=== PATIENT | female | born 1940 | race Caucasian/White ===

== ENCOUNTER → 2017-06-25 | Outpatient (CLI) | payer MEDICARE, OTHER ==
[~2017-06-25] MED LIST: ALBU90OI61 INH; CALCIUM 600+D31 EACH PO; DIGO.125 PO; EZET10 PO; FLAX PO; Flonase 0.05% N16 GM; HYDCHL50 PO; LOPE2C PO; MOVE FREE ULTR1 EACH PO; MULVITMIND PO; Metamucil0.52 GM PO; Metrocream45 GM TOP; POTASSIUM99 M1 PO; Pataday2.5 ML; TRAM50 PO; VITAMIN D-32000 UNI1 PO
== END | disposition home or self-care (01) ==
LOC: PLD 08:10 → LAB SHORT 08:10
DX: D22.4 Melanocytic nevi of scalp and neck (principal); D04.61 Carcinoma in situ of skin of right upper limb, including shoulder
CPT/HCPCS: 88305

== ENCOUNTER → 2017-11-13 | Outpatient (CLI) | payer MEDICARE, OTHER | END | disposition home or self-care (01) | LOC: LAB SHORT 16:49 → LAB 16:49 | DX: N39.0 Urinary tract infection, site not specified (principal) | CPT/HCPCS: 87086 ==

== ENCOUNTER → 2018-11-30 | Outpatient (CLI) | payer MEDICARE, OTHER ==
[2018-11-30 10:53] LABS: BASOPHILS ABSOLUTE AUTO 0.08 K/mm3 (0.00-0.23); BASOPHILS PERCENT AUTO 1 % (0-2); EOSINOPHILS ABSOLUTE AUTO 0.29 K/mm3 (0.00-0.68); EOSINOPHILS PERCENT AUTO 3 % (0-6); Hematocrit 46.6 % (33.0-51.0); Hemoglobin 16.2 g/dL (11.5-16.0); IMMATURE GRAN ABSOLUTE AUTO 0.04 K/mm3 (0.00-0.10); IMMATURE GRAN PERCENT AUTO 0 % (0-1); LYMPHOCYTES ABSOLUTE AUTO 1.54 K/mm3 (0.84-5.20); LYMPHOCYTES PERCENT AUTO 16 % (21-46); MONOCYTES ABSOLUTE AUTO 0.87 K/mm3 (0.16-1.47); MONOCYTES PERCENT AUTO 9 % (4-13); Mean Corpuscular HGB 30.3 pg (26.0-34.0); Mean Corpuscular HGB Conc 34.8 g/dL (31.5-36.5); Mean Corpuscular Volume 87 fL (80-100); Mean Platelet Volume 9.9 fL (9.1-12.4); NEUTROPHILS ABSOLUTE AUTO 6.86 K/mm3 (1.96-9.15); NEUTROPHILS PERCENT AUTO 71 % (41-73); Platelet Count 236 K/mm3 (150-400); RDW Coefficient Variation 12.1 % (11.7-14.2); RDW Standard Deviation 38.5 fL (35.1-46.3); Red Blood Cell Count 5.34 M/mm3 (3.80-5.20); White Blood Cell Count 9.68 K/mm3 (4.00-11.30)
[2018-11-30 11:01] LABS: Albumin, Blood 3.6 g/dL (3.4-5.0); Bilirubin, Total 0.6 mg/dL (0.1-1.0); Bun/Creatinine Ratio 28.7 (12.0-20.0); Calcium, Blood 9.7 mg/dL (8.5-10.1); Creatinine, Blood 1.08 mg/dL (0.40-1.00); Globulin, Blood 3.6 g/dL (2.2-4.0); Potassium, Blood 3.8 mmol/L (3.5-5.5); Total Protein, Blood 7.2 g/dL (6.4-8.2)
== END ==
LOC: LAB SHORT 10:44 → LAB EV 10:44
PROVIDERS: Emergency Medicine
DX: R05 Cough (principal); R09.02 Hypoxemia
CPT/HCPCS: 80053; 85025; 87040

== ENCOUNTER → 2018-12-15 | Outpatient (CLI) | payer MEDICARE, OTHER | END | disposition home or self-care (01) | LOC: LAB EV 15:12 → LAB SHORT 15:12 | DX: N39.0 Urinary tract infection, site not specified (principal); N18.9 Chronic kidney disease, unspecified | CPT/HCPCS: 87077; 87086; 87186 ==

== ENCOUNTER → 2018-12-30 | Outpatient (CLI) | payer MEDICARE, OTHER | END | disposition home or self-care (01) | LOC: LAB EV 14:46 → LAB SHORT 14:46 | DX: N39.0 Urinary tract infection, site not specified (principal) | CPT/HCPCS: 87077; 87086; 87186 ==

== ENCOUNTER → 2019-01-15 | Outpatient (CLI) | payer MEDICARE, OTHER | END | disposition home or self-care (01) | LOC: LAB 09:00 → LAB SHORT 09:00 | DX: N39.0 Urinary tract infection, site not specified (principal) | CPT/HCPCS: 87086 ==

== ENCOUNTER → 2019-07-29 | Outpatient (CLI) | payer MEDICARE, OTHER | END | disposition home or self-care (01) | LOC: PLD 11:38 → LAB SHORT 11:38 | DX: C44.629 Squamous cell carcinoma of skin of left upper limb, including shoulder (principal) | CPT/HCPCS: 88305 ==

== ENCOUNTER → 2019-11-14 | Outpatient (CLI) | payer MEDICARE, OTHER ==
[~2019-11-14] MED LIST changes: -DIGO.125 PO; +LANOXIN125 MCG PO; +NITR100CA PO; +VIBERZI100 MG PO
[2019-11-14 10:18] LABS: Source, Urine Clean Catch
[2019-11-14 11:46] LABS: Appearance, Urine Bloody (Clear); Bilirubin, Urine Neg (Neg); Blood, Urine 4+ (Neg); Color, Urine Red (P-Yellow); Glucose Qualitative, Urine Neg (Neg); Ketones, Urine Neg (Neg); Leukocyte Esterase, Urine 2+ (Neg); Nitrite, Urine Neg (Neg); Protein, Urine 4+ (Neg); Specific Gravity, Urine 1.015 (1.003-1.022); Urobilinogen, Urine NORM (Normal); pH, Urine 6.5 (5.0-8.0)
[2019-11-14 11:52] LABS: Bacteria Rare /hpf; Red Blood Cells, Urine TNTC /hpf (0-2); Squamous Epithelial Cells Few /hpf (Few); White Blood Cells, Urine TNTC /hpf (0-5)
== END | disposition home or self-care (01) ==
LOC: PLD 10:12 → LAB SHORT 10:12
PROVIDERS: Family Medicine
DX: N39.0 Urinary tract infection, site not specified (principal)
CPT/HCPCS: 81001; 87086

== ENCOUNTER → 2020-02-08 | Outpatient (CLI) | payer MEDICARE, OTHER | END | disposition home or self-care (01) | LOC: PLD 08:17 → LAB SHORT 08:17 | DX: B35.1 Tinea unguium (principal) | CPT/HCPCS: 88305; 88312 ==

== ENCOUNTER → 2020-08-17 | Outpatient (CLI) | payer MEDICARE, OTHER | LOC: LAB SHORT 14:01 → LAB 14:01 | DX: R31.9 Hematuria, unspecified (principal) | CPT/HCPCS: 87086 ==

== ENCOUNTER → 2020-12-26 | Outpatient (CLI) | payer MEDICARE, OTHER | LOC: LAB 14:16 → LAB SHORT 14:16 | DX: D48.5 Neoplasm of uncertain behavior of skin (principal) | CPT/HCPCS: 88305 ==

== ENCOUNTER 2024-01-03 06:13 | Day surgery (SDC) | payer MEDICARE ==
[~2024-01-03] VITALS: Ht 152.4 cm; Wt 57.0 kg
[2024-01-03] MEDS ORDERED: CeFAZolin Sodium 2,000 MG VIAL ONE (06:22)
[2024-01-03] MEDS ORDERED: NS 50 ML IV ONE (06:23)
[2024-01-03] MEDS ORDERED: Lidocaine HCl/Pf 1% 5 ML VIAL ONE (07:00)
[2024-01-03] MEDS ORDERED: EZETIMIBE10 M6 PO (07:07)
[2024-01-03] MEDS ORDERED: Potassium Chlo20 ME1 PO (07:07)
[2024-01-03] MEDS ORDERED: HYDCHL50 PO (07:08)
[2024-01-03] MEDS ORDERED: PROLIA60 MG/1 ML SC (07:09)
[2024-01-03] MEDS ORDERED: INCRUSE ELLIPTA 62.5 INH (07:10)
[2024-01-03] MEDS ORDERED: Lactated Ringer's 1,000 ML IV ONE (07:15)
[2024-01-03] MEDS ORDERED: Ipratropium/Albuterol SulF 2.5-0.5MG/3 ML Amp ONE (07:22)
[2024-01-03] MEDS ORDERED: propofoL 20 ML IV ONE ×2 (07:23→07:37)
[2024-01-03] MEDS ORDERED: FentaNYL Citrate 50 MCG/ML 2 ML Injection ONE (07:24)
--- NOTE | 2024-01-03 07:40 | NUR ---
01/03/24 0740 Soraya Dalton PT STATES DID NOT GET EKG BECAUSE "NO ONE TOLD ME TO." PER ANESTHESIA, 12 ORDERED IN PRE-OP. ANESTHESIA ALSO ORDERED NEBULIZER TX PRE-OP AFTER EKG, ORDERED AT 0721. TRANSFER TO OR DELAYED D/T NEW ORDERS FROM ANESTHESIA, DR. BURKETT.
[2024-01-03] MEDS ORDERED: Bupivacaine 0.5% HCl 5 MG/ML 30MLVIAL INJ ONE (07:58)
[2024-01-03] MEDS ORDERED: Dexamethasone Sod Phos 10 MG/ML 1ML VIAL ONE (08:11)
[2024-01-03] MEDS ORDERED: Ondansetron HCl 2 MG / ML 2ML Vial ONE (09:04)
[2024-01-03] MEDS ORDERED: Ibuprofen 600 MG Tab ONE (10:10)
[2024-01-03 11:01] VITALS: BP 128/71
--- NOTE | 2024-01-03 11:05 | NUR ---
01/03/24 1105 Soraya Dalton LATE ENTRY: PT VSS ON RA. PT DENIED PAIN. IBUPROPHEN GIVEN PER MD ORDERS IN RECOVERY UNIT. PT TOLERATED EATING AND DRINKING WITH NO ISSUES. R LEG ELEVEATED AND ICE PLACED UNDER KNEE. AMAYA, SPOUSE, BROUGHT TO RECOVERY UNIT AND DISCHARGE INSTUCTIONS GIVEN WITH PT AND SPOUSE. QUESTIONS ENCOURGAGED. PT UP TO TOILET WITH WC AND SBA, NO ISSUES. PT EXPRESSED READINESS TO GO HOME. PT STATED MD SAID THAT SHE WOULD NOT NEED CRUTCHES OR A WALKER. PT TOLD MD SHE HAS A CANE AVALIABLE IF NEEDED, AND MD APPROVED PLAN VERBALLY IN PRE-OP ROOM, PER PT.
== END 2024-01-03 10:40 | disposition home or self-care (01) ==
LOC: ORSCSDS 06:13
PROVIDERS: Podiatrist
PROC: 0QBQ0ZZ Excision of Right Toe Phalanx, Open Approach (ICD-10-PCS; principal; 2024-01-03 07:30)
DX: M20.11 Hallux valgus (acquired), right foot (principal); M89.9 Disorder of bone, unspecified; L84 Corns and callosities; J44.9 Chronic obstructive pulmonary disease, unspecified; Z79.899 Other long term (current) drug therapy
CPT/HCPCS: 82947; 93005; 93010; A9270; C1713; J0690; J1100; J2003; J2405; J2704; J3010

== ENCOUNTER 2025-01-20 08:48 | Day surgery (SDC) | payer MEDICARE ==
[~2025-01-20] VITALS: Ht 152.4 cm; Wt 55.2 kg
[2025-01-20] VITALS (18 sets, daily range): BP systolic 96–142; BP diastolic 53–98
[~2025-01-20 08:48] MED LIST changes: +ALBU90OI INH; +AZELASTINE137 MCG/01; +AZO D-MANNOSE500 M1 PO; +Acetaminophen650 M1 PO; +CALCIUM 250 MG1 EACH PO; +CeFAZolin Sodium 2,000 MG in NS 100 ML IV SCH; +Chlorhexidine Mouth Care 15 ML UDC MT SCH; +EYE ALLERGY ITCH5 ML PO; +EZETIMIBE10 M6 PO; +Estrace Vagin42.5 GM VAG; +FLUOROURACIL30 G2; +FentaNYL Citrate 50 MCG/ML 2 ML Injection ONE; +HYDROCORTISONE30 GM TOP; +Hydrochlorothia50 MG PO; +INCRUSE ELLIPTA INH; +MERIBIN5 MG PO; +MOVE FREE ULTRA PO; +MULTI-VITAMIN1 EAC2 PO; -Metrocream45 GM TOP; +Midazolam HCl 1MG / ML 2ML Vial ONE; +NORITATE TOP; +POTA10T PO; +PROLIA60 MG/1 ML SC; +Ropivacaine 0.5% HCl/Pf 123.125 MG,EPINEPHrine HCL 0.25 MG,Ketorolac Tromethamine 15 MG... INFIL SCH; +Tranexamic Acid 100 ML IV SCH; +Triamcinolone A15 G3 TOP; -VIBERZI100 MG PO; +VIBERZI75 MG PO; +Vitamin K100 MCG PO
[2025-01-20] MEDS ORDERED: CeFAZolin Sodium 2,000 MG VIAL ONE (09:06)
[2025-01-20] MEDS ORDERED: HYDROmorphone HCl/Pf 1MG SYR IV PRN ×2 (09:10→10:10)
[2025-01-20] MEDS ORDERED: FentaNYL Citrate 50 MCG/ML 2 ML Injection IV PRN ×2 (09:15)
[2025-01-20] MEDS ORDERED: Ondansetron HCl 2 MG / ML 2ML Vial IV PRN ×2 (09:15→10:15)
[2025-01-20] MEDS ORDERED: DIGOX125 MC1 PO (09:17)
[2025-01-20] MEDS ORDERED: Metoclopramide HCl 5MG / ML 2ML Vial IV PRN (10:05)
[2025-01-20] MEDS ORDERED: Magnesium Hydroxide Conc 10 ML UDC PO PRN (10:05)
--- NOTE | 2025-01-20 10:08 | NUR ---
History, Chart, Medications and Allergies reviewed before start of procedure. Patient confirms NPO status and agrees with scheduled surgery. Pre-Op teaching done. Pt verbalizes understanding. Patient reports completing Chlorhexadine shower X2 prior to admission to hospital. Lungs clear T/O to Auscultation.
[2025-01-20] MEDS ORDERED: FLU VACC TS2025(65UP)/MF59C/PF 45 MCG/0.5 ML SYRINGE IM SCH (10:30)
[2025-01-20] MEDS ORDERED: Albuterol HFA200 ACT/6.7 GM INH INH PRN (10:35)
[2025-01-20] MEDS ORDERED: Dexamethasone Sod Phos 10 MG/ML 1ML VIAL ONE (10:40)
[2025-01-20] MEDS ORDERED: Ondansetron HCl 2 MG / ML 2ML Vial ONE (10:40)
[2025-01-20] MEDS ORDERED: FentaNYL Citrate 50 MCG/ML 2 ML Injection ONE (11:00)
[2025-01-20] MEDS ORDERED: Glycopyrrolate 0.2 MG/ML 5ML VIAL ONE (11:13)
[2025-01-20] MEDS ORDERED: Insulin Regular 100 UNIT/ML 10ML Vial SC SCH (11:30)
[2025-01-20] MEDS ORDERED: Tiotropium Bromide 2.5 MCG/ACT MIST INHAL (10 ACT/4 GM) INH SCH (13:40)
--- NOTE | 2025-01-20 14:37 | NUR ---
ARRIVAL TO SURG FLOOR TO FLOOR VIA GURNEY. A&O 4, VSS. STATES NO PAIN AT THIS TIME. L KNEE w/TELFA, TEGADERM & ARTURO WRAP. POLAR PACK IN PLACE. AWAITING POST OP VOID. SNACKS & DRINKS GIVEN. CURRENTLY RESTING IN BED w/CALL LIGHT WITHIN REACH.
--- NOTE | 2025-01-20 17:59 | NUR ---
SHIFT SUMMARY S/P L TKA. A&O x4, VSS. TOLERATING FOOD & FLUIDS WELL. WORKED w/THERAPY - AMBULATED IN HALLWAY. PER THERAPY - PT WOULD BENEFIT FROM THERAPY SESSION AGAIN IN THE AM. STATES NO PAIN AT THIS TIME. VOIDED SUCCESSFULLY. CURRENTLY RESTING IN BED w/CALL LIGHT WITHIN REACH.
[2025-01-20] MEDS ORDERED: Ketorolac Tromethamine 15mg Vial IV SCH (18:00)
[2025-01-20] MEDS ORDERED: CeFAZolin Sodium 2,000 MG in NS 100 ML IV SCH (18:40)
[2025-01-21 04:03] VITALS: BP 100/59
[2025-01-21 04:22] LABS: BASOPHILS ABSOLUTE AUTO 0.05 K/mm3 (0.00-0.23); BASOPHILS PERCENT AUTO 1 % (0-2); EOSINOPHILS ABSOLUTE AUTO 0.01 K/mm3 (0.00-0.68); EOSINOPHILS PERCENT AUTO 0 % (0-6); Hematocrit 36.9 % (33.0-51.0); Hemoglobin 12.4 g/dL (11.5-16.0); IMMATURE GRAN ABSOLUTE AUTO 0.03 K/mm3 (0.00-0.10); IMMATURE GRAN PERCENT AUTO 0 % (0-1); LYMPHOCYTES ABSOLUTE AUTO 0.81 K/mm3 (0.84-5.20); LYMPHOCYTES PERCENT AUTO 8 % (21-46); MONOCYTES ABSOLUTE AUTO 0.78 K/mm3 (0.16-1.47); MONOCYTES PERCENT AUTO 7 % (4-13); Mean Corpuscular HGB Conc 33.6 g/dL (31.5-36.5); Mean Corpuscular Volume 91 fL (80-100); NEUTROPHILS ABSOLUTE AUTO 9.05 K/mm3 (1.96-9.15); NEUTROPHILS PERCENT AUTO 84 % (41-73); NRBC ABSOLUTE 0.00 K/mm3 (0.00-0.02); NRBC Auto 0.0 /100 WBC (0.0-0.2); Platelet Count 164 K/mm3 (150-400); RDW Coefficient Variation 11.9 % (11.7-14.2); RDW Standard Deviation 39.8 fL (35.1-46.3)
[2025-01-21 04:46] LABS: Anion Gap 9.0 mmol/L (3-11); Blood Urea Nitrogen 30.0 mg/dL (8-24); CO2, Blood 28.0 mmol/L (21-32); Calcium, Blood 7.4 mg/dL (8.5-10.1); Chloride, Blood 104.0 mmol/L (98-108); Creatinine, Blood 1.32 mg/dL (0.40-1.00); Glucose, Blood 126.0 mg/dL (70-99); Magnesium, Blood 1.9 mg/dL (1.6-2.4); Potassium, Blood 3.5 mmol/L (3.5-5.5); Sodium, Blood 137.0 mmol/L (136-145)
--- NOTE | 2025-01-21 05:15 | NUR ---
NOC SUMMARY- PT PAIN MANAGED WELL. PT HAS BEEN RESTING COMFORTABLY. PT IS VOIDING AND AMBULATING c FWW/ GB. POLAR PACK ON. PT TOLERATING PO. DRESSING IS C/D/I. NO NEW ISSUES. CALL LIGHT IN REACH.
[2025-01-21 07:09] VITALS: BP 100/67
[2025-01-21] MEDS ORDERED: OXAYDO5 M1 PO (08:41)
[2025-01-21] MEDS ORDERED: XARELTO20 MG PO (08:42)
[2025-01-21] MEDS ORDERED: SULTRIDS PO (08:42)
[2025-01-21] MEDS ORDERED: ONDA4ODT MM (08:43)
[2025-01-21] MEDS ORDERED: FLUOROURACIL TOP SCH (09:00)
[2025-01-21] MEDS ORDERED: Multivitamins 1 Tab PO SCH (09:00)
[2025-01-21] MEDS ORDERED: Potassium Chloride 10 Meq Tablet SA PO SCH (09:00)
[2025-01-21] MEDS ORDERED: Trimethoprim/Sulfamethoxazole DS Tab PO SCH (09:00)
--- NOTE | 2025-01-21 09:48 | NUR ---
SUMMARY ASSUMED CARE OF PT @0700. VSS. AXO4. TELFA/TEGADERM CDI. PAIN MINIMAL - TYLENOL PER EMAR PER PT REQUEST. TOLERATED PO INTAKE WELL. PHYSAICAL THERAPY WORKED WITH PT - DEEMED OK TO DC. HAS VOIDED. HAS AMBULATED WELL. DR BOOKER ASSESSED PT - DEEMED OK TO DC. DC INSTRUCTIONS PRINTED OUT. PT EDUCATED REGARDING DC. EXTRA AQUACEL PROVIDED FOR PRN USE IF NEEDED AT HOME. AWAITING RIDE HOME NOW. IV PULLED
--- NOTE | 2025-01-21 10:46 | NUR ---
PT DC'D@1453. ALL BELONGINGS WITH POT. PT WHEELED OUT WITH FAMILY MEMBERS TO PERSONAL VEHICLE. NO CHANGES FROM SUMMARY NOTE.
== END 2025-01-21 10:45 | disposition home or self-care (01) ==
LOC: ORSCMMR 08:48 → ORD 10:45 → ORSCMMR 10:45 → SURS 13:56 → ORSCMMR 01-21 10:45
PROVIDERS: Orthopaedic Surgery
PROC: 0SRD0J9 Replacement of Left Knee Joint with Synthetic Substitute, Cemented, Open Approach (ICD-10-PCS; principal; 2025-01-20 10:45)
DX: M17.12 Unilateral primary osteoarthritis, left knee (principal); E11.9 Type 2 diabetes mellitus without complications; I10 Essential (primary) hypertension; Z79.899 Other long term (current) drug therapy; Z87.891 Personal history of nicotine dependence
CPT/HCPCS: 36415; 73560-LT; 80048; 82947; 83735; 85025; 97110; 97116; 97161; 97530; A9270; C1713; C1776; J0166; J0690; J0735; J1100; J1885; J2250; J2405; J2704; J2795; J3010; J3373; J7050; J7120

== ENCOUNTER 2025-01-25 21:57 | Inpatient (IN) | payer MEDICARE ==
[~2025-01-25] VITALS: Ht 152.4 cm; Wt 56.6 kg
[~2025-01-25 21:57] MED LIST changes: -CeFAZolin Sodium 2,000 MG in NS 100 ML IV SCH; -Chlorhexidine Mouth Care 15 ML UDC MT SCH; +DIGOX125 MC1 PO; -FentaNYL Citrate 50 MCG/ML 2 ML Injection ONE; -Midazolam HCl 1MG / ML 2ML Vial ONE; +ONDA4ODT MM; +OXAYDO5 M1 PO; -Ropivacaine 0.5% HCl/Pf 123.125 MG,EPINEPHrine HCL 0.25 MG,Ketorolac Tromethamine 15 MG... INFIL SCH; +SULTRIDS PO; -Tranexamic Acid 100 ML IV SCH; +XARELTO20 MG PO
[2025-01-25 22:39] LABS: BASOPHILS ABSOLUTE AUTO 0.04 K/mm3 (0.00-0.23); BASOPHILS PERCENT AUTO 0 % (0-2); EOSINOPHILS ABSOLUTE AUTO 0.06 K/mm3 (0.00-0.68); EOSINOPHILS PERCENT AUTO 1 % (0-6); Hematocrit 38.7 % (33.0-51.0); Hemoglobin 13.2 g/dL (11.5-16.0); IMMATURE GRAN ABSOLUTE AUTO 0.03 K/mm3 (0.00-0.10); IMMATURE GRAN PERCENT AUTO 0 % (0-1); LYMPHOCYTES ABSOLUTE AUTO 1.25 K/mm3 (0.84-5.20); LYMPHOCYTES PERCENT AUTO 11 % (21-46); MONOCYTES ABSOLUTE AUTO 0.70 K/mm3 (0.16-1.47); MONOCYTES PERCENT AUTO 6 % (4-13); Mean Corpuscular HGB Conc 34.1 g/dL (31.5-36.5); Mean Corpuscular Volume 90 fL (80-100); NEUTROPHILS ABSOLUTE AUTO 9.36 K/mm3 (1.96-9.15); NEUTROPHILS PERCENT AUTO 82 % (41-73); NRBC ABSOLUTE 0.00 K/mm3 (0.00-0.02); NRBC Auto 0.0 /100 WBC (0.0-0.2); Platelet Count 229 K/mm3 (150-400); RDW Coefficient Variation 12.5 % (11.7-14.2); RDW Standard Deviation 41.1 fL (35.1-46.3)
[2025-01-25 22:55] LABS: Alanine Aminotransfer (ALT/SGP 22.0 U/L (12-78); Albumin, Blood 3.0 g/dL (3.4-5.0); Albumin/Globulin Ratio 0.8 (0.8-1.8); Anion Gap 10.0 mmol/L (3-11); Aspartate Aminotrans (AST/SGOT 23.0 U/L (12-37); Bilirubin, Total 0.6 mg/dL (0.1-1.0); Blood Urea Nitrogen 32.0 mg/dL (8-24); CO2, Blood 26.0 mmol/L (21-32); Calcium, Blood 9.2 mg/dL (8.5-10.1); Chloride, Blood 99.0 mmol/L (98-108); Creatinine, Blood 1.41 mg/dL (0.40-1.00); Globulin, Blood 3.8 g/dL (2.2-4.0); Glucose, Blood 135.0 mg/dL (70-99); Potassium, Blood 4.4 mmol/L (3.5-5.5); Sodium, Blood 131.0 mmol/L (136-145); Total Protein, Blood 6.8 g/dL (6.4-8.2)
[2025-01-26] MEDS ORDERED: Metoclopramide HCl 5MG / ML 2ML Vial IV ONE (00:35)
[2025-01-26] MEDS ORDERED: Pantoprazole Sodium 40 MG Injection IV ONE (00:35)
[2025-01-26] MEDS ORDERED: NS 1,000 ML IV SCH (00:35)
[2025-01-26] MEDS ORDERED: Lidocaine 2% Viscous Soln 100 ML BTL EXT ONE (00:40)
[2025-01-26] MEDS ORDERED: Lidocaine 2% Viscous Soln 15 ML UDC XX ONE (00:40)
[2025-01-26] MEDS ORDERED: CefTRIAXone Sodium 1,000 MG in NS 100 ML IV ONE ×2 (03:50→09:05)
[2025-01-26] MEDS ORDERED: FLU VACC TS2025(65UP)/MF59C/PF 45 MCG/0.5 ML SYRINGE IM SCH (05:10)
[2025-01-26] MEDS ORDERED: Pantoprazole Sodium 40 MG Injection IV SCH (06:00)
[2025-01-26 07:17] VITALS: BP 126/59
[2025-01-26] MEDS ORDERED: NS 250 ML IV PRN (08:40)
[2025-01-26] MEDS ORDERED: Lactobacil 2-S.Thermo-Bifido 1 1 Cap PO SCH (09:00)
[2025-01-26 13:41] LABS: Source, Urine Voided
[2025-01-26 13:44] LABS: Bilirubin, Urine Neg (Neg); Color, Urine Yellow (P-Yellow); Glucose Qualitative, Urine Neg (Neg); Ketones, Urine Neg (Neg); Leukocyte Esterase, Urine 3+ (Neg); Protein, Urine 1+ (Neg); Specific Gravity, Urine 1.020 (1.003-1.022); Urobilinogen, Urine NORM (Normal)
[2025-01-26 13:58] LABS: Red Blood Cells, Urine 25-50 /hpf (0-2)
[2025-01-26 15:14] VITALS: BP 127/63
[2025-01-26] MEDS ORDERED: Enoxaparin 30 MG/0.3 ML SYR SC SCH (16:00)
[2025-01-26] MEDS ORDERED: Ondansetron HCl 2 MG / ML 2ML Vial IV PRN (16:05)
--- NOTE | 2025-01-26 16:31 | NUR ---
SHIFT SUMMARY PT ADMITTED TO UNIT AT SHIFT CHANGE. PT ABLE TO STAND, AND AMBULATE INDEPENDENTLY c FWW TO BATHROOM TO URINATE. PT TOLERATED AMBULATION WELL. PT A/Ox4, ABLE TO MAKE NEEDS KNOWN, AND ORIENTED TO LIMITATIONS. PT ORIENTED TO ROOM AND CALL SYSTEM. ADMISSION COMPLETED INCLUDING MED REC. PT DENIES PAIN. TREATED FOR NAUSEA x1. DRESSING TO LEFT KNEE C/D/I, PHYSICAL THERAPY TO START TOMORROW. PT HAS APPOINTMENT SCHEDULED WITH [facility] FOR POST OP FOLLOW UP NEXT WEEK AND STATES DRESSING TO REMAIN IN PLACE UNTIL THEN. REMAINS ON CLEAR LIQUID DIET FOR GI REST. IV ABX ADMINISTERED PER ORDERS. PT TOLERATING INTAKE WELL. UA COLLECTED DUE TO JUD COLORED URINE WITH SEDIMENT AND HX OF UTI c ESBL, CONTACT PRECAUTIONS INITIATED DUE TO HX. URINE AND BLOOD CULTURES PENDING. PT WAS ON BACTRIM PRIOR TO ADMISSION/BLOOD CULTURE DRAWS. CURRENTLY RECIEVING LR @ 75 ML/HR IN PIV IN RAC. PT CURRENTLY RESTING IN BED WITH BED IN LOWEST POSITION AND CALL LIGHT IN REACH. PT HAS BEEN CALLING APPROPRIATELY.
--- NOTE | 2025-01-26 18:25 | NUR ---
PALLIATIVE CARE CONSULT: CONSULT RECEIVED FOR GI, POLST. REQUESTED FROM PRIMARY RN TO DISCUSS CODE STATUS AND COMPLETE POLST SINCE PT VERBALLY TOLD HER SHE WANTS TO BE A DNR. MET WITH PT AND EDUCATED ON POLST AND CODE STATUS. PT WISHES TO BE DNR, SELECTIVE TREATMENT. PRIMARY RN ALREADY OBTAINED ORDER FOR DNR. COMPLETED POLST WITH PT. NEEDS MD SIGNATURE. WILL OBTAIN TOMORROW.
[2025-01-26 19:17] VITALS: BP 119/61
[2025-01-26] MEDS ORDERED: Metoclopramide HCl 5MG / ML 2ML Vial IV PRN (20:20)
[2025-01-27 03:25] VITALS: BP 134/69
--- NOTE | 2025-01-27 04:59 | NUR ---
SHIFT SUMMARY A&OX4. ABLE TO MAKE NEEDS KNOWN. HAS HAD INTERMITTENT NAUSEA AND MEDICATED PER EMAR. REGLAN HAS WORKED THE BEST FOR MANAGEMENT OF HER NAUSEA. TYLENOL WORKED WELL FOR HER HEADACHE. SHE REQUESTED TO GO FOR A WALK DURING THE NIGHT TO STRETCH HER LEGS AND AMBULATED APPROX. 100' AND BACK W/FWW AND SBA. O2 SATS REMAINED IN LOW TO MID 90'S WITH AMBULATION ON RA. PT DENIED ANY SOB. CURRENTLY PT IS SLEEPING IN BED AT LOWEST POSITION WITH CALL LIGHT WITHIN REACH.
[2025-01-27 05:23] LABS: BASOPHILS ABSOLUTE AUTO 0.07 K/mm3 (0.00-0.23); BASOPHILS PERCENT AUTO 1 % (0-2); EOSINOPHILS ABSOLUTE AUTO 0.25 K/mm3 (0.00-0.68); EOSINOPHILS PERCENT AUTO 4 % (0-6); Hematocrit 33.2 % (33.0-51.0); Hemoglobin 11.2 g/dL (11.5-16.0); IMMATURE GRAN ABSOLUTE AUTO 0.03 K/mm3 (0.00-0.10); IMMATURE GRAN PERCENT AUTO 0 % (0-1); LYMPHOCYTES ABSOLUTE AUTO 1.57 K/mm3 (0.84-5.20); LYMPHOCYTES PERCENT AUTO 23 % (21-46); MONOCYTES ABSOLUTE AUTO 0.62 K/mm3 (0.16-1.47); MONOCYTES PERCENT AUTO 9 % (4-13); Mean Corpuscular HGB Conc 33.7 g/dL (31.5-36.5); Mean Corpuscular Volume 91 fL (80-100); NEUTROPHILS ABSOLUTE AUTO 4.17 K/mm3 (1.96-9.15); NEUTROPHILS PERCENT AUTO 62 % (41-73); NRBC ABSOLUTE 0.00 K/mm3 (0.00-0.02); NRBC Auto 0.0 /100 WBC (0.0-0.2); Platelet Count 165 K/mm3 (150-400); RDW Coefficient Variation 12.3 % (11.7-14.2); RDW Standard Deviation 41.0 fL (35.1-46.3)
[2025-01-27 05:50] LABS: Alanine Aminotransfer (ALT/SGP 23.0 U/L (12-78); Albumin, Blood 2.6 g/dL (3.4-5.0); Albumin/Globulin Ratio 0.9 (0.8-1.8); Anion Gap 6.0 mmol/L (3-11); Aspartate Aminotrans (AST/SGOT 21.0 U/L (12-37); Bilirubin, Total 0.5 mg/dL (0.1-1.0); Blood Urea Nitrogen 18.0 mg/dL (8-24); CO2, Blood 28.0 mmol/L (21-32); Calcium, Blood 7.9 mg/dL (8.5-10.1); Chloride, Blood 102.0 mmol/L (98-108); Creatinine, Blood 1.0 mg/dL (0.40-1.00); Globulin, Blood 2.8 g/dL (2.2-4.0); Glucose, Blood 98.0 mg/dL (70-99); Potassium, Blood 3.8 mmol/L (3.5-5.5); Sodium, Blood 132.0 mmol/L (136-145); Total Protein, Blood 5.4 g/dL (6.4-8.2)
[2025-01-27] MEDS ORDERED: CefTRIAXone Sodium 1,000 MG in NS 100 ML IV SCH (06:00)
[2025-01-27 07:13] VITALS: BP 120/68
[2025-01-27] MEDS ORDERED: Enoxaparin 40 MG/0.4 ML SYR SC SCH (09:00)
[2025-01-27] MEDS ORDERED: Metoclopramide HCl 5MG / ML 2ML Vial IV SCH ×2 (12:14→12:15)
[2025-01-27 17:08] VITALS: BP 123/61
--- NOTE | 2025-01-27 17:26 | NUR ---
SHIFT SUMMARY PT AOX4, SBA TO THE BR USING THE FWW. MEDICATED FOR NAUSEA PER THE EMAR, REGLAN IS NOW SCHEDULED. PT DENIES PAIN. WORKED WITH PT TODAY. ICE TO THE R KNEE AND ELEVATED. PT REPOSITIONS SELF IN BED. RA AT THIS TIME, PT STATES NAUSEA RELIEF THIS EVENING. CALLS AND MAKES HER NEEDS KNOWN. POSSIBLE DC TOMORROW. NO DIARRHEA THIS EVENING. CALL LIGHT WITHIN REACH, BED LOCKED AND IN THE LOWEST POSITION. WILL REPORT TO ONCOMING NURSE.
[2025-01-27 19:24] VITALS: BP 141/66
[2025-01-28 05:01] LABS: BASOPHILS ABSOLUTE AUTO 0.06 K/mm3 (0.00-0.23); BASOPHILS PERCENT AUTO 1 % (0-2); EOSINOPHILS ABSOLUTE AUTO 0.28 K/mm3 (0.00-0.68); EOSINOPHILS PERCENT AUTO 4 % (0-6); Hematocrit 34.2 % (33.0-51.0); Hemoglobin 11.5 g/dL (11.5-16.0); IMMATURE GRAN ABSOLUTE AUTO 0.03 K/mm3 (0.00-0.10); IMMATURE GRAN PERCENT AUTO 0 % (0-1); LYMPHOCYTES ABSOLUTE AUTO 1.41 K/mm3 (0.84-5.20); LYMPHOCYTES PERCENT AUTO 19 % (21-46); MONOCYTES ABSOLUTE AUTO 0.68 K/mm3 (0.16-1.47); MONOCYTES PERCENT AUTO 9 % (4-13); Mean Corpuscular HGB Conc 33.6 g/dL (31.5-36.5); Mean Corpuscular Volume 92 fL (80-100); NEUTROPHILS ABSOLUTE AUTO 4.87 K/mm3 (1.96-9.15); NEUTROPHILS PERCENT AUTO 67 % (41-73); NRBC ABSOLUTE 0.00 K/mm3 (0.00-0.02); NRBC Auto 0.0 /100 WBC (0.0-0.2); Platelet Count 172 K/mm3 (150-400); RDW Coefficient Variation 12.3 % (11.7-14.2); RDW Standard Deviation 41.0 fL (35.1-46.3)
[2025-01-28 05:23] LABS: Alanine Aminotransfer (ALT/SGP 23.0 U/L (12-78); Albumin, Blood 2.7 g/dL (3.4-5.0); Albumin/Globulin Ratio 0.9 (0.8-1.8); Anion Gap 8.0 mmol/L (3-11); Aspartate Aminotrans (AST/SGOT 20.0 U/L (12-37); Bilirubin, Total 0.6 mg/dL (0.1-1.0); Blood Urea Nitrogen 13.0 mg/dL (8-24); CO2, Blood 27.0 mmol/L (21-32); Calcium, Blood 8.0 mg/dL (8.5-10.1); Chloride, Blood 104.0 mmol/L (98-108); Creatinine, Blood 0.92 mg/dL (0.40-1.00); Globulin, Blood 3.0 g/dL (2.2-4.0); Glucose, Blood 102.0 mg/dL (70-99); Potassium, Blood 3.7 mmol/L (3.5-5.5); Sodium, Blood 135.0 mmol/L (136-145); Total Protein, Blood 5.7 g/dL (6.4-8.2)
--- NOTE | 2025-01-28 05:35 | NUR ---
SHIFT SUMMARY 84 YR F ADMITTED ON 01/26/25. DNR. NO ACUTE CHANGES THIS SHIFT. PT IS ABLE TO AMBULATE INDEPENDANTLY TO THE BATHROOM W/ FWW. REGLAN IS BEING GIVEN SCHEDULED FOR NAUSEA CONTROL AND PER PT IT IS WORKING WELL. STOOL SAMPLE IS STILL NEEDED IT WAS NOT OBTAINED THIS SHIFT. PT IS PLEASANT AND COOPERATIVE WITH CARE AND IS ABLE TO MAKE HER NEEDS KNOWN. BED IS IN LOW POSITION AND CALL LIGHT IN REACH.
[2025-01-28 05:55] VITALS: BP 103/65
[2025-01-28 07:28] VITALS: BP 115/87
[2025-01-28 15:27] VITALS: BP 146/73
--- NOTE | 2025-01-28 16:01 | NUR ---
DR. GUNTER NOTIFIED THAT IV ACCESS WAS LOST AND PT REQUESTS TO NOT REPLACE IV. PER DR. GUNTER, ORDER OMNICEF 200 MG PO BID, ZITHROMAX 500 MG PO DAILY, ZOFRAN 4 MG PO Q6 PRN FOR NAUSEA, REGLAN 5 MG PO Q6H, AND PROTONIX 40 MG PO BIDAC. OK TO D/C ALL IV MEDICATIONS. PT DIET ADVANCED TO REGULAR.
--- NOTE | 2025-01-28 19:29 | NUR ---
NO ACUTE CHANGES THIS SHIFT. PT DENIES NAUSEA THIS EVENING AND STATES IMPROVED NAUSEA MANAGEMENT. PT CALLS APPROPRIATELY, INDEPENDENT TO THE BATHROOM WITH FWW. PLAN TO DISCHARGE TOMORROW. DIARRHEA CONTINUES, THIS IS PT BASELINE.
[2025-01-28 20:16] VITALS: BP 144/75
[2025-01-29 04:41] VITALS: BP 131/72
--- NOTE | 2025-01-29 04:58 | NUR ---
SHIFT SUMMARY 84 YR F ADMITTED ON 01/26/25. DNR. NO ACUTE CHANGES THIS SHIFT. PT'S NAUSEA SEEMS TO HAVE RESOLVED. SHE HAS BEEN AMBULATING IN THE HALLWAY W/ HER FWW STATING THAT SHE "HAS TO KEEP HER KNEE MOVING". SHE IS A&O X 4 AND INDEPENDANT. PLAN IS FOR DISCHARGE TODAY. NO NEW CHANGES TO REPORT.
[2025-01-29 07:30] VITALS: BP 154/82
[2025-01-29] MEDS ORDERED: Acetaminophen325 M1 PO (11:53)
[2025-01-29] MEDS ORDERED: Calcium Carbon500 MG PO (11:54)
[2025-01-29] MEDS ORDERED: CEFD300 PO (11:54)
[2025-01-29] MEDS ORDERED: PANT20 PO (11:58)
[2025-01-29] MEDS ORDERED: VISBIOME 112.51 EACH PO (11:58)
[2025-01-29] MEDS ORDERED: METO5A PO (11:58)
--- NOTE | 2025-01-29 13:33 | NUR ---
DISCHARGE NOTE PT DISCHARGED TO HOME, PICKED UP BY FAMILY. NO NELLY AT THE TIME OF DISCHARGE. MEDICATIONS FAXED TO THE PHARMACY OF HER CHOICE. DISCHARGE EDUCATION AND INFORMATION REVIEWED WITH THE PT. PERSONAL BELONGINGS RETURNED.
== END 2025-01-29 13:44 | disposition home or self-care (01) | DRG 177 ==
LOC: ER 21:57 → MEDS 01-26 05:05 → ERHOLD 01-26 05:05 → MEDS 01-26 07:34 → ENPENDDIS 01-29 11:08 → MEDS 01-29 13:44
PROVIDERS: Internal Medicine; Student in an Organized Health Care Education/Training Program; ADMIT Student in an Organized Health Care Education/Training Program
DX: J15.69 Pneumonia due to other Gram-negative bacteria (principal); J96.01 Acute respiratory failure with hypoxia; E87.1 Hypo-osmolality and hyponatremia; N39.0 Urinary tract infection, site not specified; I12.9 Hypertensive chronic kidney disease with stage 1 through stage 4 chronic kidney disease, or unspecified chronic kidney disease; N18.30 Chronic kidney disease, stage 3 unspecified; K52.9 Noninfective gastroenteritis and colitis, unspecified; K29.80 Duodenitis without bleeding; E11.22 Type 2 diabetes mellitus with diabetic chronic kidney disease; J43.9 Emphysema, unspecified; E83.51 Hypocalcemia; Z79.01 Long term (current) use of anticoagulants; Z96.652 Presence of left artificial knee joint; Z88.1 Allergy status to other antibiotic agents; Z88.8 Allergy status to other drugs, medicaments and biological substances; Z79.899 Other long term (current) drug therapy; Z98.51 Tubal ligation status; Z90.710 Acquired absence of both cervix and uterus; Z98.1 Arthrodesis status; Z87.891 Personal history of nicotine dependence; Z98.890 Other specified postprocedural states
CPT/HCPCS: 36415; 74177; 80053; 81001; 82330; 82947; 84145; 85025; 86301; 87040; 87086; 93005; 93010; 94762; 96361; 96374-59; 96375; 97110; 97116; 97161; 97530; 99285-25; A9270; J0456; J0696; J1650; J2405; J2470; J2765; J7030; J7050; J7120; Q9967